=== PATIENT | male | born 1995 | race Caucasian/White ===

== ENCOUNTER 2017-02-17 10:48 | Emergency (ER) | payer BC ==
[~2017-02-17] VITALS: Ht 180.3 cm; Wt 70.8 kg
[~2017-02-17 10:48] MED LIST: ONDA4TAB7 SL
[2017-02-17 10:53] VITALS: TEMP 36.9; Ht 180.3 cm; Wt 70.8 kg
[2017-02-17] MEDS ORDERED: SODIUM CHLORIDE 0.9% 1000ML 1,000 ML IV STA (11:29)
[2017-02-17] MEDS ORDERED: ONDANSETRON INJ 2 MG/ML 2 ML VIAL IV STA (11:29)
[2017-02-17] MEDS ORDERED: MoRPHine SULFATE 10 MG/ML CARP/VIAL IV PRN (11:30)
[2017-02-17 11:43] LABS: BASO % 0.1 %; BASO ABS # 0.01 K/uL (0-0.2); COMPLETE YES; EOS % 0.1 %; HEMATOCRIT 45.3 % (42-52); IG% 0.2 %; LYMPH % 4.6 %; LYMPH ABS # 0.47 K/uL (1.2-3.4); MEAN CELL VOLUME 88.1 fL (80-100); MEAN CORPUSCULAR HEMOGLOBIN 30.7 pg (25-34); MEAN CORPUSCULAR HGB CONC 34.9 g/dl (32-36); MEAN PLATELET VOLUME 9.4 fL (7.4-10.4); MONO % 2.2 %; NEUT % 92.8 %; PLATELET COUNT 220 K/uL (130-400); RED BLOOD COUNT 5.14 M/uL (4.7-6.1); WHITE BLOOD COUNT 10.23 K/uL (4.8-10.8)
[2017-02-17] MEDS ORDERED: OPTIRAY 320 IV PRN (11:45)
[2017-02-17 11:48] LABS: URINE APPEARANCE CLEAR (CLEAR); URINE BILIRUBIN NEG (NEG); URINE COLOR DK YELLOW; URINE NITRITE NEG (NEG); URINE SPECIFIC GRAVITY 1.039 (1.000-1.030); UROBILINOGEN NEG (NEG); ZZUR CULT IF INDIC CLEAN CATCH NO
[2017-02-17 11:49] LABS: MANUAL MICROSCOPIC REQUIRED? NO; REVIEW REQ? NO
[2017-02-17 11:52] LABS: CALCIUM 8.9 mg/dl (8.5-10.1); CREATININE 0.93 mg/dl (0.60-1.40); POTASSIUM 3.9 mmol/L (3.5-5.1)
[2017-02-17 11:55] LABS: ALB/GLOB RATIO 1.2 (0.9-2)
[2017-02-17 12:18] LABS: INR 1.1 (0.9-1.1); PARTIAL THROMBOPLASTIN RATIO 1.1; PROTHROMBIN TIME (PATIENT) 11.8 SECONDS (9.0-12.0)
--- NOTE | 2017-02-17 14:34 | DIAGNOSTIC IMAGING REPORT ---
CT ABD/PELVIS IV AND ORAL CONT CLINICAL HISTORY: Diffuse abdominal pain and vomiting. COMPARISON STUDY: None. TECHNIQUE: Following the IV administration of 118 mL of Optiray-320, CT scan of the abdomen and pelvis was performed from the lung bases to the proximal femurs. Images are reviewed in the axial, sagittal, and coronal planes. IV contrast was administered without complication. CT DOSE: 424.57 mGy.cm FINDINGS: Lower chest: The heart is normal in size and configuration, without pericardial effusion. The lung bases and pleural spaces are clear. Liver: There is a 15 mm hypodensity within the right hepatic lobe. Gallbladder: Unremarkable. Spleen: Normal in size and attenuation. Pancreas: Unremarkable. Adrenal glands: Unremarkable. Kidneys: There are 2 right renal cysts, the largest of which measures 1 cm. There is a punctate left renal calculus versus early contrast excretion. There is an area of cortical scarring involving the upper pole the left kidney posteriorly. Bowel: There are no transition zones indicate bowel obstruction. There is no evidence of acute diverticulitis. The appendix is felt to be normal. There is mild fecal retention. Peritoneum: There is no intraperitoneal free air or abdominal ascites. There is a 21 x 16 x 68 mm cystic structure located within the anterior peritoneum extending to the region of the umbilicus. 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 Vasculature: The abdominal aorta is normal in course and caliber. Adenopathy: None. Pelvic viscera: The bladder, and pelvic viscera are unremarkable. Skeletal structures: There is bilateral L5 spondylolysis. There is a grade 1 spinal listhesis of L5 and S1. IMPRESSION: 1. No evidence of bowel obstruction. No evidence of free air 2. Normal appendix. No evidence of acute diverticulitis. 3. 68 x 21 x 16 mm cystic structure located anterior within the midline. This extends superiorly to near the level of the umbilicus. 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 4. Right renal cysts, an area of cortical scarring involving the upper pole the left kidney 5. 15 mm hepatic hypodensity 6. Mild fecal retention Electronically signed by: Gómez Martinez M.D. 02/17/2017 2:33 PM Dictated Date/Time: 02/17/2017 2:24 PM
[2017-02-17 14:57] VITALS: BP 121/65; PULSE 95; O2SAT 97
--- NOTE | 2017-02-18 11:45 | EMERGENCY ROOM VISIT NOTE ---
ED Visit Note First contact with patient: 11:03 Chief Complaint: Abdominal pain. History of Present Illness: Mr. Garcia is a 21 year-old white male who ambulates into the ED complaining of epigastric and bilateral lower quadrant abdominal pain. Historically patient reports to gastroenteritis last year which was followed up with a sigmoidoscopy that was nondiagnostic. He also reports intermittently since that situation he has had intermittent bright red blood per rectum during bowel movements. Patient reports a acute onset of periumbilical pain last evening approximately 12 hours ago. Shortly after the onset of his pain he became nauseated and throughout the night and throughout the night he had 8 episodes of vomiting. Last night the pain was constant but waxes and wane in intensity. He describes it as a achy and cramping sensations. At its worst last night he rates his discomfort 7/10. He did not identified any aggravating or alleviating factors related to the pain. He does report he attempted to take Tylenol but immediately after taking the medication he vomited. Also he reports last night he noticed after one episode of vomiting he had some residual vomitus in his mouth when he spit it out it had a small amount of blood; that has not returned. He had difficulty sleeping all night because of the pain and nausea/vomiting and when he awoke this morning the pain was in the epigastric and bilateral lower quadrants. Currently he describes his pain as the same. Currently he rates his discomfort 6/10. The pain is nonradiating. He has not taken any additional medications for his symptoms. He is still nauseated but has not vomited for the last couple hours. Associated with his pain he reports he has been having hot flashes and chills, he has not his bowels for approximately 24 hours and is concerned about constipation and he reports he has a stuffiness sensation of the sinuses in the ears. Patient denies skin eruptions, skin color changes, upper respiratory tract symptoms, shortness of breath, chest pain, diarrhea, rectal bleeding, black/ tarry stools, urinary symptoms, hematuria, back/flank pain. Review of Systems: As noted above in history of present illness. All body systems were reviewed and found to be negative as noted above. Past Medical History: As previously noted, unspecified skin disorder and patellar tendon repair. Current Medications: Patient denies. Allergies to Medications: Levaquin, pneumococcus vaccination. Social History: Current the patient is a college student and is unemployed; he feels safe in his home environment; he isn't denies tobacco use and admits to alcohol use. Physical Examination: Vital Signs: Date Time Temp Pulse Resp B/P Pulse Ox O2 Delivery O2 Flow Rate FiO2 02/17/17 14:57 95 16 121/65 97 Room Air 02/17/17 13:05 93 22 117/70 99 Room Air 02/17/17 12:48 90 02/17/17 11:51 87 134/70 99 Room Air 02/17/17 10:53 36.9 81 16 95/62 97 Room Air GENERAL: 21-year-old male in mild distress due to pain, nontoxic-appearing, afebrile and hemodynamically stable. NEUROLOGICAL: Awake, alert and oriented to person, place and time. Answering questions appropriately and following commands. Normal gait. Good hand eye coordination. SKIN: Warm, dry and pink. No soft tissue eruptions or trauma noted. HEENT: Atraumatic and normocephalic. PERRL. Sclera white and conjunctiva pink. Oral cavity moist and pink. Pharynx is nonerythematous or edematous. Speech normal. No lymphadenopathy. Trachea midline. No jugular venous distention. BACK: No tenderness over the bony spine. No CVA tenderness. THORAX: Lungs sounds are clear to auscultation and equal bilaterally with symmetrical chest wall. No wheezing, rales or rhonchi. No crepitus, tenderness , subcutaneous air or deformities noted. HEART: Regular rate and rhythm. No gallops, rubs or murmurs are appreciated. ABDOMEN: Flat and soft with mild to moderate tenderness in the epigastrium and right lower quadrant and minimal tenderness in the left lower quadrant. Decreased bowel sounds in all quadrants. No guarding, rigidity or organomegaly. EXTREMITIES: Moves all extremities well on command and with purpose. All distal neurovascular statuses are intact and equal bilaterally. ED Course: Patient is assessed as noted above. Laboratory Testing: Test 02/17/17 11:05 02/17/17 11:07 Range/Units White Blood Count 10.23 4.8-10.8 K/uL Red Blood Count 5.14 4.7-6.1 M/uL Hemoglobin 15.8 14.0-18.0 g/dL Hematocrit 45.3 42-52 % Mean Corpuscular Volume 88.1 80-100 fL Mean Corpuscular Hemoglobin 30.7 25-34 pg Mean Corpuscular Hemoglobin Concent 34.9 32-36 g/dl Platelet Count 220 130-400 K/uL Mean Platelet Volume 9.4 7.4-10.4 fL Neutrophils (%) (Auto) 92.8 % Lymphocytes (%) (Auto) 4.6 % Monocytes (%) (Auto) 2.2 % Eosinophils (%) (Auto) 0.1 % Basophils (%) (Auto) 0.1 % Neutrophils # (Auto) 9.49 1.4-6.5 K/uL Lymphocytes # (Auto) 0.47 1.2-3.4 K/uL Monocytes # (Auto) 0.23 0.11-0.59 K/uL Eosinophils # (Auto) 0.01 0-0.5 K/uL Basophils # (Auto) 0.01 0-0.2 K/uL RDW Standard Deviation 41.0 36.4-46.3 fL RDW Coefficient of Variation 12.8 11.5-14.5 % Immature Granulocyte % (Auto) 0.2 % Immature Granulocyte # (Auto) 0.02 0.00-0.02 K/uL Prothrombin Time 11.8 9.0-12.0 SECONDS Prothromb Time International Ratio 1.1 0.9-1.1 Activated Partial Thromboplast Time 28.5 21.0-31.0 SECONDS Partial Thromboplastin Ratio 1.1 Sodium Level 139 136-145 mmol/L Potassium Level 3.9 3.5-5.1 mmol/L Chloride Level 104 98-107 mmol/L Carbon Dioxide Level 25 21-32 mmol/L Anion Gap 10.0 3-11 mmol/L Blood Urea Nitrogen 16 7-18 mg/dl Creatinine 0.93 0.60-1.40 mg/dl Est Creatinine Clear Calc Drug Dose 124.8 ml/min Estimated GFR () 134.6 Estimated GFR (Non- 116.1 BUN/Creatinine Ratio 17.0 10-20 Random Glucose 108 70-99 mg/dl Calcium Level 8.9 8.5-10.1 mg/dl Total Bilirubin 1.0 0.2-1 mg/dl Aspartate Amino Transf (AST/SGOT) 19 15-37 U/L Alanine Aminotransferase (ALT/SGPT) 23 12-78 U/L Alkaline Phosphatase 97 45-117 U/L Total Protein 7.9 6.4-8.2 gm/dl Albumin 4.3 3.4-5.0 gm/dl Globulin 3.6 2.5-4.0 gm/dl Albumin/Globulin Ratio 1.2 0.9-2 Lipase 115 73-393 U/L Urine Color DK YELLOW Urine Appearance CLEAR CLEAR Urine pH 6.0 4.5-7.5 Urine Specific [place] 1.039 1.000-1.030 Urine Protein TRACE NEG Urine Glucose (UA) NEG NEG Urine Ketones TRACE NEG Urine Occult Blood NEG NEG Urine Nitrite NEG NEG Urine Bilirubin NEG NEG Urine Urobilinogen NEG NEG Urine Leukocyte Esterase NEG NEG Urine WBC (Auto) 1-5 0-5 /hpf Urine RBC (Auto) 0-4 0-4 /hpf Urine Hyaline Casts (Auto) 1-5 0-5 /lpf Urine Epithelial Cells (Auto) 10-20 0-5 /lpf Urine Bacteria (Auto) NEG NEG Contrast Abdominal/Pelvic CT: Was reviewed by myself and read by the radiologist showing no evidence of bowel obstruction or free air. Normal- appearing appendix. No evidence of acute dye lightness. Cyst structure located anteriorly in the midline consistent with a urachal cyst, right renal cyst and cortical scarring of the left kidney. 15 mm hepatic hypodensity. Moderate fecal retention. Patient was hydrated with normal saline and he received 4 mg of morphine IV for pain and 4 mg of Zofran IV for nausea. Patient was reassessed multiple times during his stay in the emergency department. Patient's case was reviewed with Dr. Barnes; we agreed on diagnostic approach, treatment, disposition and plan. Clinical Impression: Acute abdominal pain. Nausea/vomiting. Constipation. Sinus congestion. Decision-Making: Initially my differential diagnosis I considered appendicitis, colitis, hepatitis, pancreatitis, gastric reflux, constipation, perforated viscus, gastroenteritis and other causes. Disposition: Patient discharged home in stable condition; prior to departure he was reassessed and subjectively reported he was feeling better and rated his discomfort 1/10. Plan: Abdominal pain Patient was encouraged use 650 mg of acetaminophen every 6 hours. Patient was prescribed 4 mg of Zofran every 6 hours as needed for nausea/ vomiting. Patient was encouraged to use [id number] Colace once a day and over-the- counter MiraLAX once a day for 7 days. Patient was encouraged use a bland diet for the next 48 hours. Patient was encouraged to follow-up With [facility] for recheck in 2-3 days. Patient was encouraged to follow-up with Dr. Almanzar or a personal general surgeon for evaluation of his urachal cyst. Patient was encouraged return the ED for worsening/uncontrolled pain, uncontrolled vomiting, fevers, bloody vomitus, bloody stools or any new/ concerning symptoms. Sinus congestion Patient was encouraged use [id number] decongestants for his congestion. Patient was encouraged to follow-up with [facility] for his congestion.
== END 2017-02-17 15:32 | disposition home or self-care (01) ==
LOC: C.EDB 10:49
DX: R10.31 Right lower quadrant pain (principal); R10.32 Left lower quadrant pain; R11.2 Nausea with vomiting, unspecified; K59.00 Constipation, unspecified; R09.81 Nasal congestion

== ENCOUNTER 2017-11-02 21:06 | Emergency (ER) | payer BC ==
[~2017-11-02] VITALS: Ht 180.3 cm; Wt 68.2 kg
[2017-11-02 21:11] VITALS: TEMP 36.6; Ht 180.3 cm; Wt 68.2 kg
[2017-11-02 22:25] LABS: URINE APPEARANCE CLEAR (CLEAR); URINE BILIRUBIN NEG (NEG); URINE COLOR YELLOW; URINE NITRITE NEG (NEG); URINE SPECIFIC GRAVITY 1.025 (1.000-1.030); UROBILINOGEN NEG (NEG); ZZUR CULT IF INDIC CLEAN CATCH NO
[2017-11-02 22:26] LABS: MANUAL MICROSCOPIC REQUIRED? NO; REVIEW REQ? NO
--- NOTE | 2017-11-02 22:50 | DIAGNOSTIC IMAGING REPORT ---
TESTICULAR ULTRASOUND CLINICAL HISTORY: Left testicle pain COMPARISON STUDY: CT scan dated 02/17/2017 FINDINGS: The right testis measures 33 x 46 x 25 mm. The left testis measures 28 x 47 x 27 mm. No intratesticular masses are visualized. There is no evidence of testicular torsion. No epididymal lesions are visualized. There is a small left-sided hydrocele. There is a 9 x 3 x 4 mm hypoechoic structure within the left lateral para testicular soft tissues, possibly representing a small lymph node. IMPRESSION: 1. No evidence of intratesticular mass 2. No evidence of testicular torsion. Electronically signed by: Gómez Martinez M.D. 11/02/2017 10:48 PM Dictated Date/Time: 11/02/2017 10:45 PM
--- NOTE | 2017-11-02 23:36 | EMERGENCY ROOM VISIT NOTE ---
History First contact with patient: 21:53 Chief Complaint: TESTICULAR PAIN Stated Complaint: POSSIBLE LUMP W PAIN IN SCROTUM Nursing Triage Summary: PT presents with left groin pain, started this evening around 1700 PT states "I felt down there and I feel a lump or something" History of Present Illness The patient is a 22 year old male who presents to the Emergency Room with complaints of left-sided testicular pain that began about 2 hours ago. The patient states that he felt in the area and was concerned that he may have found a lump. Patient is in a mutually monogamous relationship and was tested for STDs last year. He does not have concern for STDs at this point. No urethral drainage or discharge. He does not have injury or trauma. No chest or abdominal pain. He rates his discomfort a 2/10. No difficulty with urination. Review of Systems More than 10 systems were reviewed and otherwise negative with the exception of history of present illness. Past Medical/Surgical History Medical Problems: (1) Esophageal Reflux (2) Sinusitis Surgical Problems: (1) Patellar tendon rupture Family History No pertinent family history Social History Smoking Status: Never Smoker Alcohol Use: occasionally Drug Use: none Marital Status: single Occupation Status: employed, student Current/Historical Medications No Active Prescriptions or Reported Meds Physical Exam Vital Signs Date Time Temp Pulse Resp B/P (MAP) Pulse Ox O2 Delivery O2 Flow Rate FiO2 11/02/17 22:12 65 18 120/74 96 Room Air 11/02/17 21:11 36.6 64 18 133/84 98 Room Air Physical Exam VITALS: Vitals are noted on the nurse's note and reviewed by myself. Vital signs stable. GENERAL: Well-developed, well-nourished, white male, who is in no acute distress and resting comfortably. Patient is cooperative with the examination. HEART: Regular rate and rhythm without murmurs gallops or rubs. LUNGS: Clear to auscultation bilaterally without wheezes, rales or rhonchi. No retractions or accessory muscle use. ABDOMEN: Positive normal bowel sounds x 4. Soft, nontender, without masses or organomegaly. No guarding or rebound tenderness. : Normal-appearing circumcised phallus without drainage or discharge. No obvious lesions appreciated throughout the shaft or scrotum. No obvious atypical mass appreciated on testicular exam. Normal cremasteric reflex. No obvious hernia. MUSCULOSKELETAL: No muscle atrophy, erythema, or edema noted. Full range of motion without joint tenderness in all extremities. Medical Decision & Procedures ER Provider Diagnostic Interpretation: TESTICULAR ULTRASOUND CLINICAL HISTORY: Left testicle pain COMPARISON STUDY: CT scan dated 02/17/2017 FINDINGS: The right testis measures 33 x 46 x 25 mm. The left testis measures 28 x 47 x 27 mm. No intratesticular masses are visualized. There is no evidence of testicular torsion. No epididymal lesions are visualized. There is a small left-sided hydrocele. There is a 9 x 3 x 4 mm hypoechoic structure within the left lateral para testicular soft tissues, possibly representing a small lymph node. IMPRESSION: 1. No evidence of intratesticular mass 2. No evidence of testicular torsion. Laboratory Results Test 11/02/17 22:10 Urine Color YELLOW Urine Appearance CLEAR (CLEAR) Urine pH 5.0 (4.5-7.5) Urine Specific [place] 1.025 (1.000-1.030) Urine Protein NEG (NEG) Urine Glucose (UA) NEG (NEG) Urine Ketones NEG (NEG) Urine Occult Blood NEG (NEG) Urine Nitrite NEG (NEG) Urine Bilirubin NEG (NEG) Urine Urobilinogen NEG (NEG) Urine Leukocyte Esterase NEG (NEG) ED Course Physical exam and history were performed. Nursing notes, EMR, and Medication List were personally reviewed. Patient appears to have left testicular pain began tonight. He identifies the inferior posterior scrotum as the area of maximum concern. There is no palpable abnormality identified in this area. I did collect a urine on the patient which was without acute findings. Ultrasound was performed and is as above. Ultrasound does not identify atypical mass or findings. I discussed options of STD testing and treatment with the patient, who declined at this time. The patient will be treated conservatively with [id number] analgesics. He is to follow-up with [facility] later this week for further care and management. He was otherwise invited back to the ER sooner with new, worsening, or concerning symptoms. The chart was completed utilizing [employer] Speech Voice Recognition Software. Grammatical errors, random word insertions, pronoun errors, and incomplete sentences are an occasional consequence of this system due to software limitations, ambient noise, and hardware issues. Any formal questions or concerns about the content, text, or information contained within the body of this dictation should be directly addressed to the provider for clarification. . Medical Decision Differential diagnosis: Etiologies such as torsion, mass, infection, hernia, hydrocele, epididymitis, trauma, intra-abdominal process, as well as others were entertained. Impression Primary Impression: Pain in left testicle Departure Information Dispostion Home / Self-Care Condition GOOD Prescriptions No Active Prescriptions or Reported Meds Forms HOME CARE DOCUMENTATION FORM, IMPORTANT VISIT INFORMATION Patient Instructions My [facility] Additional Instructions You were seen and evaluated today on an emergency basis only. This is not a substitute for, or an effort to provide, complete comprehensive medical care. It is not possible to recognize and treat all injuries or illnesses in a single emergency department visit. For this reason it is recommended that you followup with [facility] this week for ongoing care and evaluation. For baseline pain relief you may alternate ibuprofen and acetaminophen every 4 hours for pain control. Take 600 mg ibuprofen (Advil) and then 4 hours later take 1000 mg acetaminophen (Tylenol). Do not take more than 3000 mg acetaminophen in a single day. You are welcome to return to the emergency department anytime with new, worsening, or concerning symptoms.
[2017-11-02 23:49] VITALS: BP 118/72; PULSE 74; O2SAT 99
== END 2017-11-02 23:50 | disposition home or self-care (01) ==
LOC: C.EDB 21:07 → C.EDC 23:50
DX: N50.812 Left testicular pain (principal); K21.9 Gastro-esophageal reflux disease without esophagitis

== ENCOUNTER 2017-11-03 23:39 | Emergency (ER) | payer BC ==
[~2017-11-03] VITALS: Ht 180.3 cm; Wt 67.5 kg
[2017-11-03 23:46] VITALS: TEMP 36.6; Ht 180.3 cm; Wt 67.5 kg
[2017-11-04] MEDS ORDERED: KETOROLAC TROMETHAMINE 30 MG/ML VIAL IV STA (00:21)
[2017-11-04] MEDS ORDERED: SODIUM CHLORIDE 0.9% 1000ML 1,000 ML IV ONE (00:30)
[2017-11-04 00:58] LABS: BASO % 0.2 %; BASO ABS # 0.02 K/uL (0-0.2); COMPLETE YES; EOS % 1.9 %; HEMATOCRIT 40.2 % (42-52); IG% 0.2 %; LYMPH % 25.7 %; LYMPH ABS # 2.06 K/uL (1.2-3.4); MEAN CELL VOLUME 92.4 fL (80-100); MEAN CORPUSCULAR HEMOGLOBIN 31.7 pg (25-34); MEAN CORPUSCULAR HGB CONC 34.3 g/dl (32-36); MEAN PLATELET VOLUME 9.5 fL (7.4-10.4); MONO % 7.6 %; NEUT % 64.4 %; PLATELET COUNT 219 K/uL (130-400); RED BLOOD COUNT 4.35 M/uL (4.7-6.1); WHITE BLOOD COUNT 8.01 K/uL (4.8-10.8)
[2017-11-04 01:11] LABS: URINE APPEARANCE CLEAR (CLEAR); URINE BILIRUBIN NEG (NEG); URINE COLOR YELLOW; URINE NITRITE NEG (NEG); URINE SPECIFIC GRAVITY 1.023 (1.000-1.030); UROBILINOGEN NEG (NEG); ZZUR CULT IF INDIC CLEAN CATCH NO
[2017-11-04 01:17] LABS: ALT/SGPT 39 U/L (12-78); AST/SGOT 40 U/L (15-37); BLOOD UREA NITROGEN 17 mg/dl (7-18); BUN/CREATININE RATIO 22.5 (10-20); CALCIUM 8.8 mg/dl (8.5-10.1); CARBON DIOXIDE 25 mmol/L (21-32); CHLORIDE 106 mmol/L (98-107); CREATININE 0.74 mg/dl (0.60-1.40); GLUCOSE 114 mg/dl (70-99); POTASSIUM 3.6 mmol/L (3.5-5.1); SODIUM 138 mmol/L (136-145)
[2017-11-04 01:19] LABS: ALB/GLOB RATIO 1.1 (0.9-2); ALKALINE PHOSPHATASE 116 U/L (45-117)
[2017-11-04 01:22] LABS: MANUAL MICROSCOPIC REQUIRED? NO; REVIEW REQ? NO
[2017-11-04 03:30] VITALS: BP 128/74; PULSE 66; O2SAT 97
--- NOTE | 2017-11-04 03:32 | EMERGENCY ROOM VISIT NOTE ---
History First contact with patient: 00:11 Chief Complaint: TESTICULAR PAIN Stated Complaint: TESTICLE PAIN W/ BIGGER LUMPS Nursing Triage Summary: c/o left sided testicular pain seen in ed yesterday for the same. History of Present Illness The patient is a 22 year old male who presents to the Emergency Room with complaints of persistent left-sided testicle pain. The patient was seen and evaluated at this facility yesterday for this identical symptom. Ultrasound was performed yesterday and did not show acute process. The patient went home, and states that he felt well throughout the day. He states that he had an acute onset of pain about 2 hours ago that he states was intense and lasted for 3 or 4 minutes. The patient stated that during this time he also had abdominal cramping and felt the need to use the bathroom, but did not. The patient does not have concern for STDs and does not wish to be tested at this time. He has not had fever or chills. No back pain or flank pain. Currently his pain is rated a 0/10. Review of Systems More than 10 systems were reviewed and otherwise negative with the exception of history of present illness. Past Medical/Surgical History Medical Problems: (1) Esophageal Reflux (2) Sinusitis Surgical Problems: (1) Patellar tendon rupture Family History No pertinent family history Social History Smoking Status: Never Smoker Alcohol Use: occasionally Drug Use: none Marital Status: single Occupation Status: employed, student Current/Historical Medications No Active Prescriptions or Reported Meds Physical Exam Vital Signs Date Time Temp Pulse Resp B/P (MAP) Pulse Ox O2 Delivery O2 Flow Rate FiO2 11/04/17 01:17 68 18 128/67 98 Room Air 11/03/17 23:46 36.6 80 18 121/85 95 Room Air Physical Exam VITALS: Vitals are noted on the nurse's note and reviewed by myself. Vital signs stable. GENERAL: Well-developed, well-nourished, male, who is in no acute distress and resting comfortably. Patient is cooperative with the examination. NECK: Supple without nuchal rigidity. No lymphadenopathy. No thyromegaly. Cervical spine is nontender. HEART: Regular rate and rhythm without murmurs gallops or rubs. LUNGS: Clear to auscultation bilaterally without wheezes, rales or rhonchi. No retractions or accessory muscle use. ABDOMEN: Positive normal bowel sounds x 4. Soft, nontender, without masses or organomegaly. No guarding or rebound tenderness. No CVA tenderness. : Normal-appearing external male genitalia without urethral drainage or discharge. No significant testicular tenderness, mass, or lesion. Normal cremasteric reflex. MUSCULOSKELETAL: No muscle atrophy, erythema, or edema noted. Full range of motion without joint tenderness in all extremities. Medical Decision & Procedures ER Provider Diagnostic Interpretation: Preliminary Findings Only See Final Report For Complete Findings CT ABDOMEN & PELVIS Without Contrast: Compared to 02/17/17 No urolithiasis or hydronephrosis. 6 x 2 cm cystic structure deep to the umbilicus extending inferiorly. 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 Trace free pelvic fluid of uncertain etiology. Normal appendix. Redemonstrated 1.5 cm right hepatic lobe hypodensity. L5 spondylolysis again noted Preliminary Findings Only See Final Report For Complete Findings US SCROTAL: No evidence of testicular torsion. No evidence of epididymo-orchitis. Minimal bilateral hydroceles. Laboratory Results 11/04/17 00:40 Red Blood Count 4.35, Mean Corpuscular Volume 92.4, Mean Corpuscular Hemoglobin 31.7, Mean Corpuscular Hemoglobin Concent 34.3, Mean Platelet Volume 9.5, Neutrophils (%) (Auto) 64.4, Lymphocytes (%) (Auto) 25.7, Monocytes (%) (Auto) 7.6, Eosinophils (%) (Auto) 1.9, Basophils (%) (Auto) 0.2, Neutrophils # (Auto) 5.15, Lymphocytes # (Auto) 2.06, Monocytes # (Auto) 0.61, Eosinophils # (Auto) 0.15, Basophils # (Auto) 0.02 11/04/17 00:40 Test 11/04/17 00:40 White Blood Count 8.01 K/uL (4.8-10.8) Red Blood Count 4.35 M/uL (4.7-6.1) Hemoglobin 13.8 g/dL (14.0-18.0) Hematocrit 40.2 % (42-52) Mean Corpuscular Volume 92.4 fL (80-100) Mean Corpuscular Hemoglobin 31.7 pg (25-34) Mean Corpuscular Hemoglobin Concent 34.3 g/dl (32-36) Platelet Count 219 K/uL (130-400) Mean Platelet Volume 9.5 fL (7.4-10.4) Neutrophils (%) (Auto) 64.4 % Lymphocytes (%) (Auto) 25.7 % Monocytes (%) (Auto) 7.6 % Eosinophils (%) (Auto) 1.9 % Basophils (%) (Auto) 0.2 % Neutrophils # (Auto) 5.15 K/uL (1.4-6.5) Lymphocytes # (Auto) 2.06 K/uL (1.2-3.4) Monocytes # (Auto) 0.61 K/uL (0.11-0.59) Eosinophils # (Auto) 0.15 K/uL (0-0.5) Basophils # (Auto) 0.02 K/uL (0-0.2) RDW Standard Deviation 43.0 fL (36.4-46.3) RDW Coefficient of Variation 12.8 % (11.5-14.5) Immature Granulocyte % (Auto) 0.2 % Immature Granulocyte # (Auto) 0.02 K/uL (0.00-0.02) Urine Color YELLOW Urine Appearance CLEAR (CLEAR) Urine pH 6.0 (4.5-7.5) Urine Specific [place] 1.023 (1.000-1.030) Urine Protein NEG (NEG) Urine Glucose (UA) NEG (NEG) Urine Ketones NEG (NEG) Urine Occult Blood NEG (NEG) Urine Nitrite NEG (NEG) Urine Bilirubin NEG (NEG) Urine Urobilinogen NEG (NEG) Urine Leukocyte Esterase NEG (NEG) Anion Gap 7.0 mmol/L (3-11) Est Creatinine Clear Calc Drug Dose 148.2 ml/min Estimated GFR () > 150.0 Estimated GFR (Non- 130.0 BUN/Creatinine Ratio 22.5 (10-20) Calcium Level 8.8 mg/dl (8.5-10.1) Total Bilirubin 0.4 mg/dl (0.2-1) Aspartate Amino Transf (AST/SGOT) 40 U/L (15-37) Alanine Aminotransferase (ALT/SGPT) 39 U/L (12-78) Alkaline Phosphatase 116 U/L (45-117) Total Protein 7.2 gm/dl (6.4-8.2) Albumin 3.8 gm/dl (3.4-5.0) Globulin 3.4 gm/dl (2.5-4.0) Albumin/Globulin Ratio 1.1 (0.9-2) Lipase 130 U/L (73-393) Medications Administered Medications (Trade) Dose Ordered Sig/Kunal Route Start Time Stop Time Status Last Admin Dose Admin Ketorolac Tromethamine (Toradol Inj) 30 mg NOW STAT IV 11/04/17 00:21 11/04/17 00:22 DC 11/04/17 00:47 30 MG Sodium Chloride 1,000 ml @ 999 mls/hr Q1H1M ONCE IV 11/04/17 00:30 11/04/17 01:30 DC 11/04/17 00:48 999 MLS/HR ED Course Physical exam and history were performed. Nursing notes, EMR, and Medication List were personally reviewed. Patient appears to have ongoing left testicular pain. The patient was seen yesterday with his complaint, went home, felt well, and then had return of symptoms about 2 hours ago. On examination there is no significant findings to explain his symptoms. He does not appear to be in torsion or with obvious hernia. He does not desire STD testing. He is complaining of abdominal pain which is somewhat different from yesterday. IV access was established and labs were obtained. The patient was given IV Toradol for comfort. I did elect to perform both the CT scan and ultrasound today. The patient's blood work is as above and was reviewed. He does not have a significantly elevated white blood cell count, gross anemia, bandemia, or significant electrolyte imbalance. Transaminases are nondiagnostic. Urine is without signs of infection. The patient's CAT scan does not show an acute abdominal process to explain his symptoms. Ultrasound is without acute findings as well. Overall the patient was very comfortable throughout his emergency department stay. He did fall asleep in his ER bed, and I had to awake him to explain his findings. I had a lengthy discussion with the patient, and explained that he needs to follow with his primary care physician for further care and management. He may need STD testing or possible urology follow-up. He may have a small hernia as well, but this is not appreciated on exam or imaging. The patient is to continue [id number] analgesics. He is otherwise invited back to the ER with any new, worsening, or concerning symptoms. The chart was completed utilizing [employer] Voice Recognition Software. Grammatical errors, random word insertions, pronoun errors, and incomplete sentences are an occasional consequence of this system due to software limitations, ambient noise, and hardware issues. Any formal questions or concerns about the content, text, or information contained within the body of this dictation should be directly addressed to the provider for clarification. . Medical Decision Differential diagnosis: Etiologies such as appendicitis, diverticulitis, PUD, biliary pathology, UTI, pancreatitis, obstruction, mesenteric ischemia, aortic pathology, infections, inflammatory bowel disease, renal colic, as well as others were entertained. Impression Primary Impression: Left testicular pain Departure Information Dispostion Home / Self-Care Condition GOOD Prescriptions No Active Prescriptions or Reported Meds Forms HOME CARE DOCUMENTATION FORM, IMPORTANT VISIT INFORMATION Patient Instructions My [facility] Additional Instructions You were seen and evaluated today on an emergency basis only. This is not a substitute for, or an effort to provide, complete comprehensive medical care. It is not possible to recognize and treat all injuries or illnesses in a single emergency department visit. For this reason it is recommended that you followup with your primary care physician/[facility] in the next 1-2 days for recheck. For baseline pain relief you may alternate ibuprofen and acetaminophen every 4 hours for pain control. Take 600 mg ibuprofen (Advil) and then 4 hours later take 1000 mg acetaminophen (Tylenol). Do not take more than 3000 mg acetaminophen in a single day. You are welcome to return to the emergency department anytime with new, worsening, or concerning symptoms.
--- NOTE | 2017-11-04 06:48 | DIAGNOSTIC IMAGING REPORT ---
CT SCAN OF THE ABDOMEN AND PELVIS WITHOUT CONTRAST CLINICAL HISTORY: Left groin/testicular pain. Possible calculus. COMPARISON STUDY: 02/17/2017 TECHNIQUE: CT scan of the abdomen and pelvis was performed from the lung bases to the proximal femurs. Images are reviewed in the axial, sagittal, and coronal planes. IV contrast was not administered for this examination. A dose lowering technique was utilized adhering to the principles of ALARA. CT DOSE: 378.91 mGycm FINDINGS: Lower chest: The heart is normal in size and configuration, without pericardial effusion. The lung bases and pleural spaces are clear. Liver: There is a stable 16 mm right lobe hepatic hypodensity. Gallbladder: Unremarkable. Spleen: Normal in size and attenuation. Pancreas: Unremarkable. Adrenal glands: Unremarkable. Kidneys: No renal, ureteral, or bladder calculi are visualized. Bowel: There are no transition zones indicate bowel obstruction. There is no evidence of acute appendicitis. There is no evidence of acute diverticulitis. Peritoneum: There is trace free pelvic fluid. There is no free intraperitoneal air. There is a stable midline cystic structure located anteriorly abutting the posterior aspect of the rectus sheath. This measures 26 x 16 x 60 mm. This extends superiorly to near the level of the umbilicus. 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 Vasculature: The abdominal aorta is normal in course and caliber. Adenopathy: None. Pelvic viscera: The bladder, and pelvic viscera are unremarkable. Skeletal structures: There is bilateral L5 spondylolysis IMPRESSION: 1. No evidence of bowel obstruction. No evidence of free air 2. Normal appendix. No evidence of acute diverticulitis 3. 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 Stable 16 mm hepatic hypodensity 5. No renal, ureteral, or bladder calculi identified. 6. Trace free pelvic fluid of uncertain etiology Electronically signed by: Gómez Martinez M.D. 11/04/2017 6:46 AM Dictated Date/Time: 11/04/2017 6:42 AM
--- NOTE | 2017-11-04 06:57 | DIAGNOSTIC IMAGING REPORT ---
TESTICULAR ULTRASOUND CLINICAL HISTORY: Worsening left-sided testicular pain COMPARISON STUDY: 11/02/2017 FINDINGS: The right testis measures 51 x 22 x 32 mm. The left testis measures 48 x 28 x 29 mm. No intratesticular masses are visualized. There is no evidence of testicular torsion. In the area of palpable abnormality, lateral to the left testis there is a 7 x 6 x 3 mm hypoechoic structure possibly representing a lymph node. This was present on the prior study and remain similar in size. There are trace bilateral hydroceles. IMPRESSION: 1. No change from the preceding examination 2. No evidence of intratesticular mass 3. No evidence of testicular torsion Electronically signed by: Gómez Martinez M.D. 11/04/2017 6:56 AM Dictated Date/Time: 11/04/2017 6:54 AM
== END 2017-11-04 03:42 | disposition home or self-care (01) ==
LOC: C.EDB 23:40 → C.EDA 11-04 03:42
DX: N50.812 Left testicular pain (principal); R10.9 Unspecified abdominal pain; K21.9 Gastro-esophageal reflux disease without esophagitis